=== PATIENT | male | born 1965 | race Caucasian/White ===

== ENCOUNTER 2017-02-06 19:22 | Inpatient (IN) | payer MEDICAID ==
[~2017-02-06] VITALS: Ht 170.2 cm; Wt 76.1 kg
[~2017-02-06 19:22] MED LIST: ALBU8.5H3 INH; AZIT250T6 PO; ELVI1TAB PO
[2017-02-06] MEDS ORDERED: SODIUM CHLORIDE 0.9% 1L BAG IV* STA (22:46)
[2017-02-06] MEDS ORDERED: ACETAMINOPHEN 325 MG TAB PO STA (22:46)
--- NOTE | 2017-02-06 23:18 | RADRPT ---
PROCEDURE: XR Chest. CLINICAL INDICATION: Possible sepsis. TECHNIQUE: Single frontal view of the chest was obtained COMPARISON: Chest dated 10/27/2016. FINDINGS: The heart and mediastinum are within normal limits. Mild nodular air space disease over the right mid lung, and this may represent bronchiolitis. Consi venecia CT correlation. Lungs otherwise clear. There is no pleural effusion or pneumothorax. IMPRESSION: 1. Mild nodular air space disease over the right mid lung and consider CT correlation. 2. Otherwise, no evident acute cardiopulmonary disease. RPTAT: [facility] Physician Bill Date Time Electronically viewed and signed by Physician Bill on 02/06/2017 23:18 RS/
[2017-02-06 23:39] LABS: ADD SCAN DIFF NO
[2017-02-06 23:40] LABS: BASOPHIL # 0.1 10^3/ul (0.0-0.1); BASOPHILS % 0.3 % (0.0-2.0); EOSINOPHILS # 0.1 10^3/ul (0.0-0.5); EOSINOPHILS % 0.5 % (0.0-7.0); HEMATOCRIT 41.9 % (42.0-52.0); HEMOGLOBIN 14.6 g/dl (14.0-18.0); LYMPHOCYTES # 4.9 10^3/ul (0.8-2.9); LYMPHOCYTES % 27.4 % (15.0-51.0); MEAN CORPUSCULAR HEMOGLOBIN 31.8 pg (29.0-33.0); MEAN CORPUSCULAR HGB CONC 34.8 g/dl (32.0-37.0); MEAN CORPUSCULAR VOLUME 91.3 fl (82.0-101.0); MEAN PLATELET VOLUME 10.2 fl (7.4-10.4); MONOCYTE # 1.2 10^3/ul (0.3-0.9); MONOCYTES % 6.5 % (0.0-11.0); NEUTROPHIL # 11.6 10^3/ul (1.6-7.5); PLATELET COUNT 211 10^3/UL (140-415); RED BLOOD COUNT 4.59 10^6/ul (4.70-6.10); RED CELL DISTRIBUTION WIDTH 12.5 % (11.5-14.5); WHITE BLOOD COUNT 17.9 10^3/ul (4.8-10.8)
[2017-02-06] MEDS ORDERED: ALBUTEROL 0.083% (NEB) 2.5 MG/3 ML AMP NEB STA (23:45)
[2017-02-06] MEDS ORDERED: IPRATROPIUM (NEB) 0.5 MG/2.5 ML AMP NEB STA (23:45)
[2017-02-06] MEDS ORDERED: IPRATROPIUM (NEB) 0.5 MG/2.5 ML AMP ONE (23:46)
[2017-02-06] MEDS ORDERED: ALBUTEROL 0.5% (NEB) 2.5 MG/0.5 ML AMP ONE (23:46)
[2017-02-06 23:52] LABS: ALBUMIN 4.4 g/dl (3.3-4.9); CHLORIDE 104 mmol/L (97-110); INR 1.01; PROTIME 13.3 Sec (12.2-14.2); SODIUM 139 mmol/L (135-144)
[2017-02-06 23:53] LABS: PARTIAL THROMBOPLASTIN TIME 35.4 Sec (25.0-35.0); POTASSIUM 3.9 mmol/L (3.5-5.1)
[2017-02-06 23:55] LABS: ALANINE AMINOTRANSFERASE 34 IU/L (13-69); ALBUMIN/GLOBULIN RATIO 1.37; ALKALINE PHOSPHATASE 126 IU/L (42-121); ANION GAP 15 (8-16); ASPARTATE AMINO TRANSFERASE 28 IU/L (15-46); BILIRUBIN,INDIRECT 0.3 mg/dl (0-1.1); BILIRUBIN,TOTAL 0.3 mg/dl (0.2-1.3); BLOOD UREA NITROGEN 12 mg/dl (7-20); CARBON DIOXIDE 24 mmol/L (21-31); CREATININE 0.86 mg/dl (0.61-1.24); TOTAL PROTEIN 7.6 g/dl (6.1-8.1)
[2017-02-06 23:56] LABS: CALCIUM 8.6 mg/dl (8.4-10.2); GLUCOSE 89 mg/dl (70-220)
[2017-02-07 00:19] LABS: TROPONIN-I < 0.010 ng/ml (0.00-0.12)
[2017-02-07] MEDS ORDERED: AZITHROMYCIN 250 MG TAB PO STA (00:20)
[2017-02-07] MEDS ORDERED: CEFTRIAXONE 1 GM/50 ML (PMX) 50 ML IVPB STA (00:20)
--- NOTE | 2017-02-07 00:22 | ERA ---
ER Documentation Chief Complaint Date/Time DATE: 02/07/17 TIME: 00:21 Chief Complaint FEVER WITH HEMOPTYSIS AND CHEST PAIN X 1 WEEK. HIV+ HPI This is a 51-year-old male with fever and hemoptysis and chest pain for 1 week. Patient is HIV positive. Cough is also mildly productive. Patient says unknown viral load. Unknown CD4 count. No other current complaints. Mild associated shortness of breath with coughing. ROS All systems reviewed and are negative except as per history of present illness. Medications Home Meds Active Scripts Azithromycin* (Azithromycin*) 250 Mg Tablet, 500 MG PO ONCE, #1 TAB Prov:HAKAN CONDE MD 10/27/16 Azithromycin* (Azithromycin*) 250 Mg Tablet, 250 MG PO DAILY, #4 TAB Prov:HAKAN CONDE MD 10/27/16 Albuterol Sulfate* (Proair HFA*) 8.5 Gm Hfa.aer.ad, 2 PUFF INH Q6H Y for WHEEZING AND SOB, #1 INHALER Prov:HAKAN CONDE MD 10/27/16 Reported Medications Elvitegr/Cobicist/Emtric/Tenof (STRIBILD TABLET) 1 Each Tablet, 1 EACH PO DAILY , TAB 10/27/16 Allergies Allergies: Coded Allergies: morphine (Verified Allergy, Unknown, rash, 10/27/16) PMhx/Soc History of Surgery: No Hx Respiratory Disorders: Yes (asthma) Hx Miscellaneous Medical Probl: Yes (HIV) Hx Alcohol Use: No Hx Substance Use: No Hx Tobacco Use: Yes Smoking Status: Light tobacco smoker Physical Exam Vitals Vital Signs Date Time Temp Pulse Resp B/P Pulse Ox O2 Delivery O2 Flow Rate FiO2 02/06/17 23:52 96 20 97 21 02/06/17 23:00 99.9 02/06/17 22:55 95 18 130/82 99 Room Air 02/06/17 19:53 100.5 117 20 138/79 97 Physical Exam Const: [] Head: Atraumatic Eyes: Normal Conjunctiva ENT: Normal External Ears, Nose and Mouth. Neck: Full range of motion..~ No meningismus. Resp: Clear to auscultation bilaterally Cardio: Regular rate and rhythm, no murmurs Abd: Soft, non tender, non distended. Normal bowel sounds Skin: No petechiae or rashes Back: No midline or flank tenderness Ext: No cyanosis, or edema Neur: Awake and alert Psych: Normal Mood and Affect Result Diagram: 02/06/17 2315 02/06/175 Results 24 hrs Laboratory Tests Test 02/06/17 23:15 White Blood Count 17.910^3/ul Red Blood Count 4.5910^6/ul Hemoglobin 14.6g/dl Hematocrit 41.9% Mean Corpuscular Volume 91.3fl Mean Corpuscular Hemoglobin 31.8pg Mean Corpuscular Hemoglobin Concent 34.8g/dl Red Cell Distribution Width 12.5% Platelet Count 86375^3/UL Mean Platelet Volume 10.2fl Neutrophils % 65.0% Lymphocytes % 27.4% Monocytes % 6.5% Eosinophils % 0.5% Basophils % 0.3% Nucleated Red Blood Cells % 0.0/100WBC Neutrophils # 11.610^3/ul Lymphocytes # 4.910^3/ul Monocytes # 1.210^3/ul Eosinophils # 0.110^3/ul Basophils # 0.110^3/ul Nucleated Red Blood Cells # 0.010^3/ul Prothrombin Time 13.3Sec Prothrombin Time Ratio 1.0 INR International Normalized Ratio 1.01 Activated Partial Thromboplast Time 35.4Sec Sodium Level 139mmol/L Potassium Level 3.9mmol/L Chloride Level 104mmol/L Carbon Dioxide Level 24mmol/L Anion Gap 15 Blood Urea Nitrogen 12mg/dl Creatinine 0.86mg/dl Glucose Level 89mg/dl Lactic Acid Level 0.9mmol/L Calcium Level 8.6mg/dl Total Bilirubin 0.3mg/dl Direct Bilirubin 0.00mg/dl Indirect Bilirubin 0.3mg/dl Aspartate Amino Transf (AST/SGOT) 28IU/L Alanine Aminotransferase (ALT/SGPT) 34IU/L Alkaline Phosphatase 126IU/L Troponin I < 0.010ng/ml Total Protein 7.6g/dl Albumin 4.4g/dl Globulin 3.20g/dl Albumin/Globulin Ratio 1.37 Current Medications Medications (Trade) Dose Ordered Sig/Jossue Route PRN Reason Start Time Stop Time Status Last Admin Dose Admin Sodium Chloride (NS) 2,430 ml BOLUS OVER 2 HOURS STAT IV* 02/06/17 22:46 02/06/17 22:48 DC 02/06/17 23:12 Acetaminophen (Tylenol Tab) 650 mg ONCE STAT PO 02/06/17 22:46 02/06/17 22:48 DC 02/06/17 23:11 Albuterol (Proventil 0.083% (Neb)) 5 mg ONCE STAT NEB 02/06/17 23:45 02/06/17 23:46 DC 02/06/17 23:51 Ipratropium [place] (Atrovent 0.02% (Neb)) 0.5 mg ONCE STAT NEB 02/06/17 23:45 02/06/17 23:46 DC 02/06/17 23:51 Ipratropium [place] (Atrovent 0.02% (Neb)) 0.5 mg STK-MED ONCE .ROUTE 02/06/17 23:46 02/06/17 23:47 DC Albuterol (Proventil 0.5% (Neb)) 2.5 mg STK-MED ONCE .ROUTE 02/06/17 23:46 02/06/17 23:47 DC Procedures/MDM EKG: Rate/Rhythm: [Normal Sinus Rhythm] QRS, ST, T-waves: [No changes consistent w/ acute ischemia] Impression: [No evidence of ischemia or arrhythmia] Chest X-ray 1V Interpreted by me: Soft Tissue: No acute abnormalities Bones: No acute abnormalities Mediastinum/Cardiac Silhouette/Lungs: Nodular airspace disease. Impression : Possible HIV related pneumonia Medical decision-makin-year-old gentleman who has evidence of airspace disease. Patient will be admitted to hospitalist. Started on Rocephin azithromycin and Bactrim to cover for pneumocystis disease. Departure Diagnosis: Primary Impression: Pneumonia Qualified Code: J18.9 - Pneumonia due to infectious organism, unspecified laterality, unspecified part of lung Condition: Serious IDALMIS DE LEÓN Feb 07, 2017 00:22
[2017-02-07] MEDS ORDERED: TRIMETHOPRIM/SULFAMETHOXAZOLE 10 ML in DEXTROSE 5% 500 ML IVPB ONE ×2 (00:30→03:30)
[2017-02-07 01:00] VITALS: TEMP 99.9
[2017-02-07 02:00] VITALS: PULSE 94
--- NOTE | 2017-02-07 02:07 | HP ---
Date/Time of Note Date/Time of Note DATE: 02/07/17 TIME: 00:46 Assessment/Plan VTE Prophylaxis VTE Prophylaxis Intervention: anti-embolic stocking Assessment/Plan Assessment/Plan 1) Fever and Cough with Leukocytosis of 17.9, but no Left Shift. 1VCXR shows no evidence of acute cardiopulmonary disease, so it is not clear that there is a pneumonia going on, so doubt Opportunistic Pulmonary Infection - Admit to Med-Surg - Monitor and Evaluate as indicated - CT Chest to further evaluate the abnormal findings on the CXR - CBC in AM 2) Hematemesis - Consider GI Referral vs Pulmonary Referral as it is not 100% clear if oral bleeding is from vomiting or from coughing/ GI vs Pulmonary source 3) Asthma with possible Asthmatic Bronchitis - DuoNeb Q 4 hours - Consider Steroid blast 4) HIV Positive - Viral Load. Need to assess patient's current immune status HPI/ROS Admit Date/Time Admit Date/Time 02/07/17 0009 Hx of Present Illness Patient is a 51 year old male with HIV who gets his medical care by Dr. Camejo at the [facility]. He presents with a complaint of fever, chills and cough for the past week. He states this is his 4th visit to the ER in the past 4 months. He states his Viral Load is 1400 and he takes his Antiretroviral medication daily. He has never had Pneumonia, but he does have Asthma. He smokes 2 cigarettes daily. He mentions that he has been nauseated but has not vomited. His phlegm has had blood init for the past 15 days. He denies any red blood SC or black-colored stools ROS General: Admits: Fever, Chills Denies: Poor Appetite, Generalized Body Aches Eyes: Admits: Denies: Blurry Vision, Double Vision HENT: Admits: Denies: Ear Pain/Pressure, Runny/Stuffy Nose, Sore Throat Cardiovascular: Admits: Denies: Chest Pain, Palpitations, Leg Swelling Pulmonary: Admits: Cough, Phlegm with blood for the past 15 days Denies: Wheeze, Shortness of Breath Gastrointestinal: Admits: Nausea Denies: Abdominal Pain, Vomiting, Diarrhea, Blood in Stool, Black-Colored Stool Urogenital: Admits: Denies: Burning with Urination, Urinary Frequency, Blood in Urine Musculoskeletal: Admits: Denies: Joint Pain, Joint Swelling, Muscle Pain Neurological: Admits: Denies: Headache, Dizziness, Numbness, Tingling, Shooting Pains Integumentary: Admits: Denies: Rash, Itch PMH/Family/Social Past Medical History HIV; Asthma Past Surgical History Past Surgical Hx: appendectomy (30 years ago), other (Eye Surgery) Social History Alcohol Use: none Smoking Status: Light tobacco smoker (2 Cigarettes per day) Drug Use: none Exam/Review of Systems Vital Signs Vitals Vital Signs Date Time Temp Pulse Resp B/P Pulse Ox O2 Delivery O2 Flow Rate FiO2 02/06/17 23:52 96 20 97 21 02/06/17 23:00 99.9 02/06/17 22:55 130/82 Room Air Exam Exam General: Sleeping 51 year old Yi-Speaking male, rouses easily. Appears tired, but non-toxic and in no acute distress. Eyes: Sclera White, EOMI HENT: Normocephalic/Atraumatic, External Ears/Nose Normal, Moist Mucus Membranes Neck: Supple, Trachea Midline Cardiovascular: Normal Rate, Regular Rhythm, Normal S1 and S2, No Murmur, No Extra Sounds. Radial pulse +2/4. No pedal Edema. Pulmonary: Decreased airflow throughout, Normal Respiratory Effort, but easy and multiple dry coughs in a row with even a moderate inspiration.Coarse sounds notec, but No Rales, Rhonchi or Wheezes Gastrointestinal: Normoactive Bowel Sounds, Soft, Non-Tender/Non-Distended, No Hepatosplenomegaly Appreciated, No Pulsatile Masses Urogenital: Deferred Musculoskeletal: Normal Muscle Bulk and Tone Neurological: CN II - XII Grossly Intact, Non-Focal, Speech Normal Integumentary: Normal Moisture and Temperature, Good Turgor, No Jaundice, No Rash. Lymphatic: No Cervical, Supraclavicular, Axillary or Inguinal Lymphadenopathy Psychiatric: Appropriate Mood and Affect, Good Eye Contact Labs Result Diagram: 02/06/17 2315 02/06/17 2315 Medications Medications Home Meds Active Scripts Azithromycin* (Azithromycin*) 250 Mg Tablet, 500 MG PO ONCE, #1 TAB Prov:HAKAN CONDE MD 10/27/16 Azithromycin* (Azithromycin*) 250 Mg Tablet, 250 MG PO DAILY, #4 TAB Prov:HAKAN CONDE MD 10/27/16 Albuterol Sulfate* (Proair HFA*) 8.5 Gm Hfa.aer.ad, 2 PUFF INH Q6H Y for WHEEZING AND SOB, #1 INHALER Prov:HAKAN CONDE MD 10/27/16 Reported Medications Elvitegr/Cobicist/Emtric/Tenof (STRIBILD TABLET) 1 Each Tablet, 1 EACH PO DAILY , TAB 10/27/16 Current Medications Trimethoprim/ Sulfamethoxazole/ Dextrose (Bactrim/D5W) 510 ml @ 350 mls/hr ONCE ONCE IVPB ; Start 02/07/17 at 00:30; Stop 02/07/17 at 01:57 Procedures Procedures Laboratory Tests Test 02/06/17 23:15 White Blood Count 17.910^3/ul Red Blood Count 4.5910^6/ul Hemoglobin 14.6g/dl Hematocrit 41.9% Mean Corpuscular Volume 91.3fl Mean Corpuscular Hemoglobin 31.8pg Mean Corpuscular Hemoglobin Concent 34.8g/dl Red Cell Distribution Width 12.5% Platelet Count 70579^3/UL Mean Platelet Volume 10.2fl Neutrophils % 65.0% Lymphocytes % 27.4% Monocytes % 6.5% Eosinophils % 0.5% Basophils % 0.3% Nucleated Red Blood Cells % 0.0/100WBC Neutrophils # 11.610^3/ul Lymphocytes # 4.910^3/ul Monocytes # 1.210^3/ul Eosinophils # 0.110^3/ul Basophils # 0.110^3/ul Nucleated Red Blood Cells # 0.010^3/ul Prothrombin Time 13.3Sec Prothrombin Time Ratio 1.0 INR International Normalized Ratio 1.01 Activated Partial Thromboplast Time 35.4Sec Sodium Level 139mmol/L Potassium Level 3.9mmol/L Chloride Level 104mmol/L Carbon Dioxide Level 24mmol/L Anion Gap 15 Blood Urea Nitrogen 12mg/dl Creatinine 0.86mg/dl Glucose Level 89mg/dl Lactic Acid Level 0.9mmol/L Calcium Level 8.6mg/dl Total Bilirubin 0.3mg/dl Direct Bilirubin 0.00mg/dl Indirect Bilirubin 0.3mg/dl Aspartate Amino Transf (AST/SGOT) 28IU/L Alanine Aminotransferase (ALT/SGPT) 34IU/L Alkaline Phosphatase 126IU/L Troponin I < 0.010ng/ml Total Protein 7.6g/dl Albumin 4.4g/dl Globulin 3.20g/dl Albumin/Globulin Ratio 1.37 EKG: Rate/Rhythm: Sinus Tach at 115 BPM QRS, ST, T-waves: No Acute Changes Impression: Abnormal EKG PROCEDURE: XR Chest. CLINICAL INDICATION: Possible sepsis. TECHNIQUE: Single frontal view of the chest was obtained COMPARISON: Chest dated 10/27/2016. FINDINGS: The heart and mediastinum are within normal limits. Mild nodular air space disease over the right mid lung, and this may represent bronchiolitis. Consider CT correlation. Lungs otherwise clear. There is no pleural effusion or pneumothorax. IMPRESSION: 1. Mild nodular air space disease over the right mid lung and consider CT correlation. 2. Otherwise, no evident acute cardiopulmonary disease. SOBEIDA FELIX DO Feb 07, 2017 00:56
[2017-02-07 02:38] VITALS: BP 120/62; RESP 20
[2017-02-07 02:52] LABS: ADD UMIC YES; URINE BILIRUBIN (Dip) NEGATIVE (NEGATIVE); URINE BLOOD (Dip) TRACE (NEGATIVE); URINE COLOR LT. YELLOW (YELLOW); URINE GLUCOSE (Dip) NEGATIVE (NEGATIVE); URINE KETONES (Dip) NEGATIVE (NEGATIVE); URINE LEUKOCYTE ESTERASE (Dip) NEGATIVE (NEGATIVE); URINE NITRITE (Dip) NEGATIVE (NEGATIVE); URINE TOTAL PROTEIN (Dip) NEGATIVE (NEGATIVE); URINE UROBILINOGEN (Dip) 0.2 E.U./dL (0.1-1.0)
[2017-02-07 03:05] VITALS: Ht 170.2 cm; Wt 76.1 kg
[2017-02-07] MEDS ORDERED: TRIMETHOPRIM/SULFAMETHOXAZOLE 10 ML in DEXTROSE 5% 250 ML IVPB ONE (03:30)
[2017-02-07] MEDS ORDERED: ONDANSETRON 4 MG TAB PO PRN (03:30)
[2017-02-07] MEDS ORDERED: NACL 0.9% 3 ML SYG IV SCH (03:30)
[2017-02-07] MEDS ORDERED: HYDROCODONE/APAP (5/325) TAB PO PRN (03:30)
[2017-02-07] MEDS ORDERED: METOCLOPRAMIDE 10 MG INJ IV PRN (03:30)
[2017-02-07] MEDS ORDERED: ALBUTEROL/IPRATROPIUM (NEB) 3 ML AMP HHN PRN (03:30)
[2017-02-07 05:42] LABS: ADD SCAN DIFF NO
[2017-02-07] MEDS: ALBUTEROL/IPRATROPIUM (NEB) 3 ML AMP HHN SCH ×5 (05:42→20:02)
[2017-02-07 05:49] LABS: BASOPHIL # 0.1 10^3/ul (0.0-0.1); BASOPHILS % 0.3 % (0.0-2.0); EOSINOPHILS # 0.1 10^3/ul (0.0-0.5); EOSINOPHILS % 0.6 % (0.0-7.0); HEMATOCRIT 37.7 % (42.0-52.0); HEMOGLOBIN 13.2 g/dl (14.0-18.0); LYMPHOCYTES # 4.2 10^3/ul (0.8-2.9); LYMPHOCYTES % 27.1 % (15.0-51.0); MEAN CORPUSCULAR HEMOGLOBIN 31.9 pg (29.0-33.0); MEAN CORPUSCULAR VOLUME 91.1 fl (82.0-101.0); MEAN PLATELET VOLUME 9.8 fl (7.4-10.4); MONOCYTES % 6.3 % (0.0-11.0); NEUTROPHILS % 65.3 % (39.0-77.0); PLATELET COUNT 192 10^3/UL (140-415); RED BLOOD COUNT 4.14 10^6/ul (4.70-6.10); RED CELL DISTRIBUTION WIDTH 12.4 % (11.5-14.5); WHITE BLOOD COUNT 15.3 10^3/ul (4.8-10.8)
[2017-02-07 06:29] LABS: POTASSIUM 3.8 mmol/L (3.5-5.1)
[2017-02-07 06:31] LABS: CREATININE 0.78 mg/dl (0.61-1.24)
[2017-02-07 06:32] LABS: CALCIUM 8.1 mg/dl (8.4-10.2)
[2017-02-07 07:27] VITALS: BP 129/78; RESP 21
[2017-02-07] MEDS ORDERED: IOHEXOL 300MG/ML 150 ML BTL ONE (08:27)
[2017-02-07] MEDS ORDERED: SOD CHLORIDE 0.9% 100 ML ONE (08:27)
--- NOTE | 2017-02-07 09:12 | RADRPT ---
PROCEDURE: CT Chest with contrast. CLINICAL INDICATION: Abnormal CXR, CT Recommended. Febrile pt with HIV TECHNIQUE: CT scan of the chest with contrast was performed on a multidetector high-resolution CT scan. The patient was scanned following the uncomplicated intravenous administration of 80 ml Omnip aque-300. Coronal and sagittal reformatted images were obtained from the axial source images. Standa rd CT scan of the chest with contrast protocols were performed. The total exam CTDI equals 11.46 mGy and the total exam DLP equals 477.41 mGy-cm. One or more of the following dose reduction techniques were used: - Automated exposure control. - Adjustment of the mA and/or kV according to patient size. Use of iterative reconstruction technique. COMPARISON: Chest series 02/06/2017 FINDINGS: There are multiple blebs involving the peripheral upper lungs and apices. Mild dependent lung atele ctasis. On the previous recent chest x-ray there was described mild nodular air space disease of th e right mid lung which probably represents small pulmonary vessels on end. Specifically there is no evidence of pulmonary nodules bilaterally. The lungs are otherwise clear without evidence of infilt rates. The heart is within normal limits in size without evidence of pericardial effusion. No evid ence of pleural effusions or pneumothoraces. There is mild paratracheal lymphadenopathy. No evidenc e of hilar, axillary or paraclavicular lymphadenopathy. The aorta is unremarkable. Images of the u pper abdomen are unremarkable. There is degenerative changes lower cervical thoracic and upper lumb ar spine. No acute osseous findings. No osteoblastic/osteolytic lesions. IMPRESSION: 1. Previous chest x-ray 02/06/2017 indicated nodular air space disease involving the right mid lung likely representing pulmonary vessels on end. 2. Specifically, no evidence of pulmonary nodules. 3. Mild paratracheal lymphadenopathy. No evidence of hilar or axillary lymphadenopathy. 4. Multiple blebs involving the peripheral upper lungs and apical regions. Dependent atelectasis. 5. No evidence of thoracic effusions. RPTAT:AAJJ Physician Moiz Date Time Electronically viewed and signed by Physician Moiz on 02/07/2017 09:12 /
[2017-02-07] MEDS: ELVITEGR/COBICIST/EMTRIC/TENOF 1 EACH TABLET PO SCH (09:56)
[2017-02-07] MEDS: FAMOTIDINE 20 MG TAB PO SCH ×2 (09:57→20:23)
[2017-02-07] MEDS: ENOXAPARIN 40 MG/0.4 ML SYG SC SCH (10:02)
--- NOTE | 2017-02-07 18:43 | CONS ---
DATE OF ADMISSION: 02/07/2017 DATE OF CONSULTATION: 02/07/2017 TYPE OF CONSULTATION: Infectious Disease. REASON FOR CONSULTATION: Antibiotic management. HISTORY OF PRESENT ILLNESS: Michele Finn is a 51-year-old male who comes into the em ergency room with fever and hemoptysis as well as chest pain for 1 week. He has a history of HIV p ositivity. The patient does not know his CD4 count or his viral load. He is currently on Stribild which is tenofovir, emtricitabine, cobicistat and elvitegravir which he has been sign on for a perio d of time 1 tablet a day. His problems also include asthma. He is a light tobacco smoker. On admi ssion, his white count was 17.9, H and H 14.6 and 41.9, platelet count 211,000. BUN and creatinine 12/0.86. PAST MEDICAL HISTORY: Operations as outlined. FAMILY HISTORY: Noncontributory. SOCIAL HISTORY: Does not smoke, drink or abuse drugs. ALLERGIES: NONE TO PENICILLIN, SULFA OR FOODS. MEDICATIONS: Per chart. REVIEW OF SYSTEMS: As per HPI. PHYSICAL EXAMINATION: GENERAL: The patient is a well-developed, well-nourished male who is alert, responsive, in no acute distress. VITAL SIGNS: Stable. He is afebrile. T-max 100.5. SKIN: Without generalized rash. HEENT: Within normal limits. NECK: Supple. LYMPH NODES: None palpable. CHEST: Decreased breath sounds at the bases. HEART: Without murmur or gallop. ABDOMEN: Soft, nontender, without organosplenomegaly or masses. EXTREMITIES: Without cyanosis, clubbing, or edema. RECTAL AND GENITAL: Deferred. NEUROLOGIC: No focal neurological abnormalities. Chest x-ray shows no acute abnormalities. He does have a nodular airspace disease. IMPRESSION AND PLAN: Possible HIV related pneumonia. Patient was started on Rocephin, azithromycin and Bactrim. A CT scan of the chest was done which shows nodular airspace disease involving the ri ght mid lung, likely representing pulmonary vessels. Specifically, no evidence of pulmonary nodules . Mild paratracheal lymphadenopathy, no evidence of hilar or axillary lymphadenopathy. Multiple bl ebs involving peripheral upper lungs in apical regions, dependent atelectasis. No evidence of thora cic effusions. So it is unlikely that these are actually nodules. Microbiology: His influenza A a nd B are negative. I doubt very much that he has pneumocystis. We have to await the results of his CD4 count and viral load. I see lymphocyte subset and a HIV RNA by PCR was ordered as well. Erica cuevas was placed also on azithromycin and ceftriaxone as I noted, as well as received 1 dose of IV Bact rim, but I do not think we are treating pneumocystis. I will dictate my findings to the hospitalist . Dictated By: TERE CONTRERAS MD, JD/AZUCENA Conf#: [id number] DID#: [id number]
--- NOTE | 2017-02-07 18:44 | CONS ---
DATE OF ADMISSION: 02/07/2017 DATE OF CONSULTATION: 02/07/2017 ADDENDUM On further questioning, the patient states that his CD4 count is 1400, so he has an excellent CD4 co unt and, therefore, pneumocystis is out of the question. He probably just has a viral syndrome and currently is on azithromycin and ceftriaxone. Dictated By: TERE CONTRERAS MD, JD/AZUCENA Conf#: [id number] DID#: [id number]
[2017-02-07 19:55] VITALS: BP 117/71; RESP 18
[2017-02-07] MEDS: ACETAMINOPHEN 325 MG TAB PO PRN (19:58)
[2017-02-08] MEDS ORDERED: AZITHROMYCIN 500 MG in SOD CHLORIDE 0.9% 250 ML IVPB SCH (01:00)
[2017-02-08] MEDS: ALBUTEROL/IPRATROPIUM (NEB) 3 ML AMP HHN SCH ×6 (01:01→20:16)
[2017-02-08 06:18] LABS: ADD SCAN DIFF NO
[2017-02-08 06:20] LABS: BASOPHILS % 0.4 % (0.0-2.0); EOSINOPHILS # 0.1 10^3/ul (0.0-0.5); HEMATOCRIT 36.2 % (42.0-52.0); HEMOGLOBIN 12.8 g/dl (14.0-18.0); LYMPHOCYTES # 3.7 10^3/ul (0.8-2.9); LYMPHOCYTES % 32.9 % (15.0-51.0); MEAN CORPUSCULAR HEMOGLOBIN 32.7 pg (29.0-33.0); MEAN CORPUSCULAR HGB CONC 35.4 g/dl (32.0-37.0); MEAN CORPUSCULAR VOLUME 92.3 fl (82.0-101.0); MONOCYTE # 0.6 10^3/ul (0.3-0.9); MONOCYTES % 5.5 % (0.0-11.0); NEUTROPHIL # 6.7 10^3/ul (1.6-7.5); NEUTROPHILS % 59.8 % (39.0-77.0); PLATELET COUNT 189 10^3/UL (140-415); RED BLOOD COUNT 3.92 10^6/ul (4.70-6.10); RED CELL DISTRIBUTION WIDTH 12.8 % (11.5-14.5); WHITE BLOOD COUNT 11.2 10^3/ul (4.8-10.8)
[2017-02-08 06:54] LABS: CHOL/HDL RATIO 5.3 RATIO; MAGNESIUM 2.2 mg/dl (1.7-2.5); PHOSPHORUS 3.1 mg/dl (2.5-4.9)
[2017-02-08 07:11] LABS: POTASSIUM 3.4 mmol/L (3.5-5.1)
[2017-02-08 07:13] LABS: CREATININE 0.82 mg/dl (0.61-1.24)
[2017-02-08 07:14] LABS: CALCIUM 8.6 mg/dl (8.4-10.2)
[2017-02-08 07:27] LABS: THYROID STIMULATING HORMONE 3.49 MIU/L (0.465-4.680)
[2017-02-08 07:52] VITALS: BP 125/61; RESP 16
[2017-02-08] MEDS: FAMOTIDINE 20 MG TAB PO SCH ×2 (08:25→20:37)
[2017-02-08] MEDS: ELVITEGR/COBICIST/EMTRIC/TENOF 1 EACH TABLET PO SCH (08:25)
[2017-02-08] MEDS: ENOXAPARIN 40 MG/0.4 ML SYG SC SCH (08:32)
[2017-02-08] MEDS ORDERED: POTASSIUM CHLORIDE (SR) 10 MEQ TAB PO ONE (11:00)
[2017-02-08] MEDS: ACETAMINOPHEN 325 MG TAB PO PRN (11:01)
--- NOTE | 2017-02-08 11:44 | PN ---
DATE: 02/08/2017 TIME OF EVALUATION: 10:45 a.m. SUBJECTIVE: Improved dyspnea. Complaints of cough. OBJECTIVE DATA: VITAL SIGNS: Temperature 98.6, pulse rate 86, respiratory rate 18, blood pressure 125/61, oxygen saturation 96% on room air. GENERAL: This is a well-built, well-nourished male lying in bed. HEENT: Head normocephalic and atraumatic. Eyes: Anicteric sclerae. Conjunctivae clear. ENT: Nasal septum is midline. Oral mucosa is dry. NECK: Supple. No JVD noticed. RESPIRATORY: Bilaterally diminished breath sounds. No use of accessory muscles of respiration. No wheezing. CARDIAC: Regular rate and rhythm. S1 and S2 heard. ABDOMEN: Soft, nontender, and nondistended. Bowel sounds positive in all 4 quadrants. GENITOURINARY: Deferred. EXTREMITIES: No cyanosis, no clubbing, no edema. Peripheral pulses are palpable. NEUROLOGIC: The patient is awake, alert, and oriented. Cranial nerves are grossly intact. LABORATORY AND DIAGNOSTIC DATA: WBC 11.2, hemoglobin 12.8, hematocrit 36.2, platelet count 189. Sodium 142, potassium 3.4, chloride 108, carbon dioxide 23 , anion gap 14, BUN 14, creatinine 0.82, glucose 150, calcium 8.6, phosphorus 3.1, magnesium 2.2. ASSESSMENT AND PLAN: 1. Possible underlying acute tracheobronchitis. Continue antibiotics. No evidence of any pneumonia as per CT scan. CT scan reveals emphysematous blebs. The patient is a chronic smoker. Continue inhaled bronchodilators. Pending CD4 count and viral load. The patient less likely have any PCP. 2. Dyslipidemia with elevated triglycerides and suboptimal LDL. Will start the patient on fish oil. 3. Possible underlying chronic obstructive pulmonary disease. Continue inhaled bronchodilators. 4. Nicotine use. Cessation advised. 5. HIV. Continue antiretrovirals. 6. Fluid, electrolytes, and nutrition. Low cholesterol diet. 7. Deep venous thrombosis prophylaxis. Subcutaneous Lovenox. 8. Gastrointestinal prophylaxis. Histamine 2 receptor blockers. Plan: Continue antibiotics. Cultures so far negative. Will await CD4 count and viral load to be back. Will await further recommendations from infectious disease. Case discussed with Dr. Elder. TOBI ELDER MD, AM/AZUCENA Conf#: [id number] [facility]#: [id number] MTDD
--- NOTE | 2017-02-08 15:17 | PN ---
DATE: 02/08/2017 INFECTIOUS DISEASE PROGRESS NOTE SUBJECTIVE: No acute changes. The patient is alert, comfortable on room air. No fevers, no shortn ess of breath. WBC 11.2. No shift, no bands. BUN 14, creatinine 0.82. MICROBIOLOGY: Blood culture, urine culture and influenza swab negative. CD4 count pending. ANTIMICROBIALS: The patient is on: 1. Zithromax. 2. He is also on Stribild. PHYSICAL EXAMINATION: GENERAL: This is a well-nourished, well-developed, middle-aged, man, who is alert, in no d istress. HEENT: Head atraumatic, normocephalic. Sclerae anicteric. Buccal mucosa pink. NECK: Supple. CHEST: Chest rise is symmetrical. Breath sounds clear. HEART: S1, S2. ABDOMEN: Soft. Bowel tones present. EXTREMITIES: Without cyanosis. ASSESSMENT: 1. Community-acquired pneumonia. 2. Human immunodeficiency virus. 3. Systemic inflammatory response syndrome. PLAN: The patient remains stable. We are going to change antibiotics to oral Levaquin. Continue H IV medications. Await for CD4 count, viral load, and anticipate discharge on oral Levaquin for 7 mo re days. Dictated By: YANELIS CANDELARIO [place] ASSESSOR for TERE GARNER/AZUCENA Conf#: [id number] DID#: [id number]
[2017-02-08 19:48] VITALS: BP 129/77; RESP 20
[2017-02-08] MEDS: FISH OIL 1,000 MG CAP PO SCH (20:37)
[2017-02-09] MEDS: ALBUTEROL/IPRATROPIUM (NEB) 3 ML AMP HHN SCH ×3 (01:07→09:38)
[2017-02-09 05:40] LABS: ADD SCAN DIFF NO
[2017-02-09 05:45] LABS: BASOPHIL # 0.1 10^3/ul (0.0-0.1); BASOPHILS % 0.5 % (0.0-2.0); EOSINOPHILS # 0.2 10^3/ul (0.0-0.5); EOSINOPHILS % 2.2 % (0.0-7.0); HEMATOCRIT 38.2 % (42.0-52.0); HEMOGLOBIN 13.1 g/dl (14.0-18.0); LYMPHOCYTES # 4.2 10^3/ul (0.8-2.9); LYMPHOCYTES % 37.8 % (15.0-51.0); MEAN CORPUSCULAR HGB CONC 34.3 g/dl (32.0-37.0); MEAN CORPUSCULAR VOLUME 93.4 fl (82.0-101.0); MONOCYTE # 0.7 10^3/ul (0.3-0.9); MONOCYTES % 6.7 % (0.0-11.0); NEUTROPHIL # 5.8 10^3/ul (1.6-7.5); NEUTROPHILS % 52.4 % (39.0-77.0); PLATELET COUNT 210 10^3/UL (140-415); RED BLOOD COUNT 4.09 10^6/ul (4.70-6.10); RED CELL DISTRIBUTION WIDTH 12.5 % (11.5-14.5)
[2017-02-09] MEDS ORDERED: LEVOFLOXACIN 500 MG TAB PO SCH (06:00)
[2017-02-09 06:23] LABS: POTASSIUM 4.3 mmol/L (3.5-5.1)
[2017-02-09 06:26] LABS: CREATININE 0.8 mg/dl (0.61-1.24)
[2017-02-09 06:27] LABS: CALCIUM 9.1 mg/dl (8.4-10.2)
[2017-02-09 06:30] LABS: MAGNESIUM 2.1 mg/dl (1.7-2.5); PHOSPHORUS 4.8 mg/dl (2.5-4.9)
[2017-02-09 08:15] VITALS: BP 140/63; RESP 18
[2017-02-09] MEDS: FAMOTIDINE 20 MG TAB PO SCH (09:31)
[2017-02-09] MEDS: FISH OIL 1,000 MG CAP PO SCH (09:31)
[2017-02-09] MEDS: ENOXAPARIN 40 MG/0.4 ML SYG SC SCH (10:25)
[2017-02-09] MEDS: ELVITEGR/COBICIST/EMTRIC/TENOF 1 EACH TABLET PO SCH (11:10)
--- NOTE | 2017-02-09 11:10 | PDOCDIS ---
Discharge Instructions DIAGNOSIS Discharge Diagnosis: Acute tracheobronchitis. CONDITION Patient Condition: Stable HOME CARE INSTRUCTIONS: Special Diet: regular, preferably low-cholesterol FOLLOW UP/APPOINTMENTS Appointments Justin Zavala MD Specialty: Internal Medicine Office Address: [address] [place] [address] [place], [place] [id number] Office OTHER ORDERS: Other Orders: 1. Regular, preferably low-cholesterol diet. 2. Continue HIV medications. Complete the course of antibiotics. 3. Resume activities as tolerated. 4. Follow-up with your primary care physician in 2 weeks. If you do not have a primary care physician, please call Dr. Justin Zavala's office. 5. Go to the nearest emergency room if you have worsening shortness of breath, persistent fevers, or any other unusual signs/symptoms. TOBI HAINES NP Feb 09, 2017 11:10
[2017-02-09] MEDS ORDERED: LEVO500T10 PO (11:11)
--- NOTE | 2017-02-09 12:23 | DS ---
DATE OF ADMISSION: 02/07/2017 DATE OF DISCHARGE: 02/09/2017 FINAL DIAGNOSES: 1. Acute tracheobronchitis. 2. Dyslipidemia with elevated triglycerides and suboptimal LDL. 3. Chronic obstructive pulmonary disease. 4. Nicotine use. 5. Human immunodeficiency virus positive status. CONSULTATIONS: 1. Dr. Lc Rivera, Infectious Disease. 2. Benja Tanner NP for Infectious Disease. HOSPITAL COURSE: This is a 51-year-old male with past medical history of human immunodeficiency virus. He presents with a complaint of fever, chills and cough for a 1-week period. The patient verbalized that this is his fourth visit to the ER in the past 4 months. The patient has been compliant with his HIV medications. In the emergency room, the patient was noticed to have a WBC of 17.9. The patient's chest x-ray showed a mild nodular airspace disease over the right mid lung zone. Provided the patient's history of present illness , his comorbidities and the diagnostic findings, a clinical decision was made to admit the patient to have him further evaluated. The patient was admitted to inpatient medical/surgical floor. The patient was started on empiric antibiotics. Pancultures were ordered. Infectious disease consult was called on this patient. The patient had a chest CT scan done to further evaluate the chest x-ray findings. The patient's chest CT showed no evidence of any pulmonary nodules. However, it showed multiple blebs involving the peripheral upper lungs and apical regions and dependent atelectasis along with mild paratracheal lymphadenopathy. Hence, it was concluded that the patient has underlying emphysema, most probably secondary to his chronic smoking. The patient was maintained on inhaled bronchodilators. The patient was confirmed to have possible underlying acute tracheobronchitis. There was no evidence of any infiltrate to suggest pneumonia on the chest CT scan. As mentioned earlier, the patient has HIV. The patient's latest CD4 count as per the patient is 1400 and therefore, there was no suspicion for any pneumocystis pneumonia. The patient's influenza A and B screen was negative. Urine and blood cultures were negative. The patient's symptoms improved with the treatment strategy. The patient was incidentally noted to have dyslipidemia with elevated triglycerides and suboptimal LDL. The patient was advised on a low cholesterol diet. The patient had a stable hospital course. The patient is clinically stable to be discharged home. The patient denied any complaints at the time of discharge. DISPOSITION AND PLAN: The patient will be discharged home today. The patient was instructed to follow a regular, preferably low-cholesterol diet as tolerated. The patient was instructed to continue HIV medications and to complete the course of antibiotics. He was instructed to resume activities as tolerated. The patient was instructed to follow up with his primary care physician in 2 weeks, and if he does not have a primary care physician, to please call Dr. Justin Zavala's office. The patient was instructed to go to the nearest emergency room if he has any worsening shortness of breath, worsening fevers or any other unusual signs/symptoms. The patient was advised to quit smoking. The patient verbalized understanding of his discharge instructions. CONDITION AT DISCHARGE: Stable. DISCHARGE MEDICATIONS: 1. Levaquin 500 mg p.o. daily for 7 days. 2. ProAir HFA 0.5 grams 2 puffs q.6h. p.r.n. dyspnea. 3. Stribild tablet, 1 tablet p.o. daily. PERTINENT LABORATORY AND DIAGNOSTIC DATA: 1. Blood cultures x2 negative. 2. Urine culture negative. 3. Influenza A and B screen negative. 4. Fasting lipid panel: Triglycerides 175, total cholesterol 188, LDL 118, AST of 35, hemoglobin A1c 5.5. 5. Latest CBC: WBC 11.0, hemoglobin 13.1, hematocrit 38.2, platelet count 217. 6. Latest BMP: Sodium 142, potassium 4.3, chloride 107, carbon dioxide 23, anion gap 16, BUN 12, creatinine 0.8, glucose 91, calcium 9.1, phosphorus 4.8, magnesium 2.1. 7. Chest x-ray upon admission: Mild nodular airspace disease over the right mid lung zone. 8. Chest CT scan: No evidence of pulmonary nodules. Very mild paratracheal lymphadenopathy. No evidence of hilar or axillary lymphadenopathy. Multiple blebs involving the peripheral upper lungs and apical regions. Dependent atelectasis. No evidence of thoracic effusions. At this time, I would like to thank all the consultants for seeing the patient and providing clinical recommendations. The case and management of this patient was fully discussed with Dr. Elder. Approximately 35 minutes was spent in coordinating the discharge of this patient. TOBI ELDER MD, AM/[facility]CENA Conf#: [id number] [facility]#: [id number] MTDD
[2017-02-09 18:08] LABS: LYMPHOCYTE - CD4/CD8 RATIO 1.25 (0.86-5.00)
== END 2017-02-09 12:40 | disposition home or self-care (01) | DRG 194 ==
LOC: E/R 19:22 → MS2 02-07 00:10
PROVIDERS: ADMIT Family Medicine; ATTEND Family Medicine
DX: J18.9 Pneumonia, unspecified organism (principal); K92.0 Hematemesis; J44.9 Chronic obstructive pulmonary disease, unspecified; J20.9 Acute bronchitis, unspecified; J45.909 Unspecified asthma, uncomplicated; E78.5 Hyperlipidemia, unspecified; F17.210 Nicotine dependence, cigarettes, uncomplicated; Y95 Nosocomial condition
CPT/HCPCS: 36415; 71010; 71260; 80048; 80053; 80061; 81001; 81003; 83036; 83605; 83735; 84100; 84439; 84443; 84484; 85025; 85610; 85730; 86360; 87040; 87086; 87400; 87536; 93005; 94640; 94664; 96365; J0456; J0696; J1650; J7030; J7050; J7060; J7070; Q9967

== ENCOUNTER 2017-11-07 15:39 | Emergency (ER) | END 2017-11-07 22:12 | disposition home or self-care (01) ==

== ENCOUNTER 2018-01-21 15:08 | Emergency (ER) | END 2018-01-21 21:11 | disposition home or self-care (01) ==

== ENCOUNTER 2018-03-28 17:14 | Emergency (ER) | END 2018-03-28 19:03 | disposition home or self-care (01) ==

== ENCOUNTER 2018-03-30 12:58 | Emergency (ER) | END 2018-03-30 18:04 | disposition home or self-care (01) ==

== ENCOUNTER 2018-08-02 11:35 | Emergency (ER) | END 2018-08-02 12:39 | disposition home or self-care (01) ==

== ENCOUNTER 2019-09-12 19:29 | Emergency (ER) | payer MEDICAID, OTHER ==
[~2019-09-12] VITALS: Ht 170.2 cm; Wt 80.6 kg
[~2019-09-12 19:29] MED LIST changes: -ALBU8.5H3 INH; -AZIT250T6 PO; +DOXY100C42 PO; -ELVI1TAB PO; +ELVI1TAB3 PO; +GEMF600T8 PO; +HYDR-4011 PO; +IBUP-1542 PO; +LOSA50TA14 PO; +METO-335 PO; +POLY17PO6 PO
[2019-09-12 19:40] VITALS: Ht 170.2 cm; Wt 80.6 kg
[2019-09-12] MEDS ORDERED: KETOROLAC 15 MG INJ IV STA (20:44)
[2019-09-12] MEDS ORDERED: IOHEXOL 100 ML ONE (20:56)
[2019-09-12] MEDS ORDERED: SOD CHLORIDE 0.9% 100 ML ONE (20:56)
[2019-09-12 23:40] VITALS: BP 116/81; PULSE 80; RESP 16
== END 2019-09-12 23:41 | disposition home or self-care (01) ==
LOC: E/R 19:29
DX: R07.9 Chest pain, unspecified (principal); I10 Essential (primary) hypertension; B20 Human immunodeficiency virus [HIV] disease; F17.210 Nicotine dependence, cigarettes, uncomplicated
CPT/HCPCS: 71045; 71275; 80053; 83880; 84484; 85025; 96374; J1885; Q9967; Z7502; Z7610; 93005